=== PATIENT | female | born 1935 ===

== ENCOUNTER 2017-02-13 12:07 | Emergency (ER) | payer MEDICARE, MEDICAID ==
[2017-02-13 12:08] VITALS: PULSE 92; BMI 18.1
[2017-02-13 12:17] VITALS: O2SAT 98
--- NOTE | 2017-02-13 12:54 | C.PDOC ---
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 Patient has been experiencing three-day duration of multiple episodes of loose/non-bloody stools, that is associated with abdominal cramping, dysuria, generalized weakness and light headedness. No fever or vomiting. Patients appetite is unchanged from usual. No sick contacts. Patient denies any antibiotic use in the past three months. VIA TRANS DIARRHEA X 3 DAYS. MULTIPLE LOOSE BM. +ASSOC ABD CRAMPING. +GEN WEAKNESS, LIGHTHEADEDNESS. NO FEVER, VOMITING. APPETITE UNCH FROM USUAL. NO SICK CONTACTS. DENIES ABX USE IN PAST 3 MONTHS. +DYSURIA PMHx includes Arthritis, Atrial Fibrillation, CAD, Diabetes, Gall Bladder Disease, Hypertension, Hypercholesterolemia, and Peripheral Edema, EXAM Time Seen by Provider: 02/13/17 12:53 Chief Complaint (Nursing): Abdominal Pain Past Medical History Reviewed: Historical Data, Nursing Documentation, Vital Signs ( ) Vital Signs: Last Vital Signs Temp 98.6 F 02/13/17 14:50 Pulse 80 02/13/17 14:50 Resp 18 02/13/17 14:50 BP 157/74 H 02/13/17 14:50 Pulse Ox 98 02/13/17 14:50 - Medical History PMH: Arthritis, Atrial Fibrillation, CAD, Cardia Arrhythmia (A-FIB), Diabetes, Gall Bladder Disease, HTN, Hypercholesterolemia, Peripheral Edema Denies: Chronic Kidney Disease Surgical History: Cholecystectomy, Endoscopy - [facility] Procedures COLONOSCOPY (05/15/14) ESOPHAGOGASTRODUODENOSCOPY [EGD] W/CLOSED BIOPSY (05/15/14) Family History: States: Unknown Family Hx - Social History Hx Tobacco Use: No Hx Alcohol Use: No Hx Substance Use: No - Immunization History Hx Tetanus Toxoid Vaccination: Yes Hx Influenza Vaccination: Yes (2016) Hx Pneumococcal Vaccination: Yes Review Of Systems Except As Marked, All Systems Reviewed And Found Negative. Constitutional: Positive for: Weakness. Negative for: Fever Cardiovascular: Positive for: Light Headedness. Negative for: Chest Pain Respiratory: Negative for: Shortness of Breath Gastrointestinal: Positive for: Diarrhea. Negative for: Nausea, Vomiting Skin: Negative for: Rash Neurological: Negative for: Weakness, Numbness, Headache, Dizziness Physical Exam - Physical Exam Appears: Non-toxic, No Acute Distress, Other (Weak) Skin: Warm, Dry, No Rash Eye(s): bilateral: Normal Inspection Nose: Normal Oral Mucosa: Moist Lips: Normal Appearing Neck: Normal ROM Cardiovascular: Rhythm Regular, No Murmur Respiratory: Normal Breath Sounds, No Accessory Muscle Use Gastrointestinal/Abdominal: Soft, Tenderness (B/L LQ), No Guarding, No Rebound Extremity: Normal ROM Neurological/Psych: Oriented x3 ED Course And Treatment - Laboratory Results Result Diagrams: 02/13/17 13:16 02/13/17 13:16 ECG: Interpreted By Me ECG Rhythm: Atrial Fibrillation ECG Interpretation: No Changes From Prior Rate From EC O2 Sat by Pulse Oximetry: 98 Pulse Ox Interpretation: Normal - Radiology CXR: Interpreted by Me CXR Interpretation: Yes: No Acute Disease Progress - Re-Evaluation Re-evaluation Note: 02/13/17 16:18 FEELS BETTER. +UO SINCE IVF. ANA W ABX, JACOB PMD - Data Reviewed Data Reviewed: Lab, Diagnostic imaging, EKG Disposition Counseled Patient/Family Regarding: Studies Performed, Diagnosis, Need For Followup, Rx Given - Disposition Referrals: YOUR,PMD [Other] Disposition: HOME/ ROUTINE Disposition Time: 16:18 Condition: IMPROVED Prescriptions: Atropine/Diphenoxylate [Lonox 0.025 MG-2.5 MG] 1 tab PO TID PRN #15 tab PRN Reason: Diarrhea Ciprofloxacin [Cipro] 1 tab PO BID #14 tab Metronidazole [Flagyl] 500 mg PO BID #14 tab Instructions: Gastroenteritis (ED), Urinary Tract Infection in Women (ED) Print Language: TURKISH - Clinical Impression Clinical Impression: Diarrhea, UTI (lower urinary tract infection), Abdominal pain - Scribe Statement The provider has reviewed the documentation as recorded by the Alex Mosley All medical record entries made by the Edmaribmary ann were at my direction and personally dictated by me. I have reviewed the chart and agree that the record accurately reflects my personal performance of the history, physical exam, medical decision making, and the department course for this patient. I have also personally directed, reviewed, and agree with the discharge instructions and disposition.
[2017-02-13] MEDS ORDERED: Sodium Chloride 0.9% 1,000 ML IV ONE ×2 (13:05)
[2017-02-13 13:23] LABS: BASO # 0.1 K/uL (0.0-0.2); BASO % 1.3 % (0.0-2.0); EOS # 0.1 K/uL (0.0-0.7); HEMATOCRIT 41.5 % (34.0-47.0); LYMPH % 18.5 % (20.0-40.0); MEAN CELL VOLUME 87.3 fL (81.0-99.0); MEAN CORPUSCULAR HEMOGLOBIN 27.7 pg (27.0-31.0); MEAN CORPUSCULAR HGB CONC 31.7 g/dL (33.0-37.0); MEAN PLATELET VOLUME 9.2 fL (7.2-11.7); MONO # 0.6 K/uL (0.0-0.8); MONO % 5.6 % (0.0-10.0); RED CELL DISTRIBUTION WIDTH 13.2 % (11.5-14.5); WHITE BLOOD COUNT 10.8 K/uL (4.8-10.8)
[2017-02-13 13:26] LABS: CHLORIDE 98 mmol/L (98-107)
[2017-02-13 13:27] LABS: POTASSIUM 4.4 mmol/L (3.6-5.2); SODIUM 135 mmol/L (132-148)
[2017-02-13 13:29] LABS: GFR AFRICAN-AMERICAN > 60
[2017-02-13 13:30] LABS: BLOOD UREA NITROGEN 22 mg/dL (7-17); CALCIUM 10.3 mg/dl (8.6-10.4); CARBON DIOXIDE 24 mmol/L (22-30); GLUCOSE,RANDOM 238 mg/dL (65-105)
[2017-02-13 13:40] LABS: RBC URINE 2 /hpf (0-3); URINE BILIRUBIN NEGATIVE (NEGATIVE); URINE BLOOD NEGATIVE (NEGATIVE); URINE COLOR Yellow (YELLOW); URINE GLUCOSE (UA) NORMAL (Normal); URINE HYALINE CAST >20 /lpf (0-2); URINE KETONE TRACE mg/dL (NEGATIVE); URINE LEUKOCYTE ESTERASE 2+ Leu/uL (Negative); URINE PROTEIN 1+ mg/dL (NEGATIVE); URINE UROBILINOGEN NORMAL mg/dL (0.2-1.0); WBC URINE 8 /hpf (0-5)
--- NOTE | 2017-02-13 14:10 | RAD ---
PROCEDURE: CHEST RADIOGRAPH, 1 VIEW HISTORY: Abdominal pain COMPARISON: None available. FINDINGS: LUNGS: Biapical pleural thickening with upper lobe granulomatous changes. Focal nodular density projecting over the left upper to mid lung zone. Chronic interstitial lung markings. Patchy left basilar airspace opacity. PLEURA: As above. CARDIOVASCULAR: Normal. OSSEOUS STRUCTURES: Degenerative changes in the spine and shoulders. Chronic deformity of the right proximal humerus. VISUALIZED UPPER ABDOMEN: Normal. OTHER FINDINGS: None. IMPRESSION: Biapical pleural thickening with upper lobe granulomatous changes. Focal nodular density projecting over the left upper to mid lung zone. Chronic interstitial lung markings. Patchy left basilar airspace opacity.
[2017-02-13] MEDS ORDERED: Iohexol 350mg/ml 100 ML ONE (14:56)
[2017-02-13 16:30] VITALS: BP 150/70; PULSE 78; RESP 15; TEMP 98
--- NOTE | 2017-02-13 16:55 | CT ---
CT abdomen and pelvis History: Abdominal pain and diarrhea. Comparison: None available. Technique: Axial computed tomographic images of the abdomen and pelvis were performed with intravenous contrast. Subsequently, sagittal and coronal reformatted images were obtained. This CT exam was performed using one or more of the following dose reduction techniques: Automated exposure control, adjustment of the mA and/or kV according to patient size, and/or use of iterative reconstruction technique. Findings: Ground-glass infiltrates at the bilateral lung bases. Mild intrahepatic biliary ductal dilatation. Status postcholecystectomy. Heterogeneous pancreas, nonspecific. Spleen is grossly preserved. Adrenals are grossly preserved. Hypodense lesions of the renal parenchyma, some of which are consistent with cysts, others of which are too small to definitively characterize. Correlation with multiphasic CT or MR may be helpful. For example an exophytic low-attenuation lesion emanating from the midpole of the left kidney demonstrates a Hounsfield unit attenuation of 7 measuring 2.3 centimeters. More inferiorly in the right kidney a 7 millimeter hypodensity demonstrates a Hounsfield unit attenuation of 27, indeterminate. Mild fullness of the right renal collecting system. In the left kidney for example a midpole exophytic lesion measures 1.1 centimeters demonstrating a Hounsfield unit attenuation of 5. Additional hypodensities in both kidneys. No hydronephrosis. Appendix measures up to 6.7 millimeters in width best seen on series 3, image 97 containing a few foci of air, upper limits of normal. Small hiatal hernia. Mild thickening of the proximal stomach. Multiple prominent fluid filled and distended as well as mildly thick walled loops of small bowel within the upper and left shawn abdomen. This may represent an underlying enteritis. No evidence of gross obstruction. Mild thickening of the sigmoid colon and rectum. Mild acute infectious and or inflammatory changes can't be excluded. Clinical correlation. Colonic diverticulosis. Calcification and plaque within the aorta. Urinary bladder is grossly preserved. No significant abdominal or pelvic ascites. Multilevel degenerative disc disease. Shotty para-aortic and mesenteric lymph nodes. Impression: 1. Multiple prominent fluid filled and distended as well as mildly thick walled loops of small bowel within the upper and left shawn abdomen. This may represent an underlying enteritis. No evidence of gross obstruction. 2. Mild thickening of the sigmoid colon and rectum. Mild acute infectious and or inflammatory changes can't be excluded. Clinical correlation. Colonic diverticulosis. 3. Ground-glass infiltrates at the bilateral lung bases. 4. Hypodense lesions of the renal parenchyma as described above. 5. Small hiatal hernia. Mild thickening of the proximal stomach. 6. Shotty para-aortic and mesenteric lymph nodes. Additional findings as above. These findings were preliminarily reported at 3:45 p.m. on 02/13/[address] Bill Albright from [facility].
--- NOTE | 2017-02-14 14:22 | CARD ---
APPROVED REPORT EKG Measurement Heart [id number] <Conclusion> Atrial fibrillation Low voltage QRS Nonspecific ST and T wave abnormality Abnormal ECG
== END 2017-02-13 16:48 | disposition home or self-care (01) ==
LOC: C.ER 12:07
DX: N39.0 Urinary tract infection, site not specified (principal); R19.7 Diarrhea, unspecified
CPT/HCPCS: 71010; 74177; 80048; 81001; 82948; 85025; 87086; 93005; 96360; 96361; 99285; J7040; Q9967

== ENCOUNTER 2018-03-12 13:29 | Emergency (ER) | payer MEDICARE, MEDICAID ==
[2018-03-12 13:29] VITALS: PULSE 92; BMI 18.1
[2018-03-12 13:47] VITALS: PULSE 72; O2SAT 97
--- NOTE | 2018-03-12 14:18 | C.PDOC ---
History Of Present Illness Pt states that she was sitting at the edge of the bed when she slid down to the grown injuring her left ribs area. No LOC or head injury. - HPI Time Seen by Provider: 03/12/18 13:45 Chief Complaint (Nursing): Rib Injury History Per: Patient, Family (daughter) Injury Occurred (Timing): Days Ago: (2) Location Of Injury: Left: Chest Severity: Moderate Additional History Per: Prior Records - Fall Fall:Prior To Injury: Slipped Past Medical History Reviewed: Historical Data, Nursing Documentation, Vital Signs Vital Signs: Last Vital Signs Temp 98.5 F 03/12/18 13:38 Pulse 72 03/12/18 13:38 Resp 18 03/12/18 13:38 BP 139/84 03/12/18 13:38 Pulse Ox 97 03/12/18 14:20 - Medical History PMH: Arthritis, Atrial Fibrillation, CAD, Diabetes, Gall Bladder Disease, HTN, Hypercholesterolemia, Peripheral Edema Surgical History: Cholecystectomy, Endoscopy - [facility] Procedures COLONOSCOPY (05/15/14) ESOPHAGOGASTRODUODENOSCOPY [EGD] W/CLOSED BIOPSY (05/15/14) Family History: States: Unknown Family Hx - Social History Hx Tobacco Use: No Hx Alcohol Use: No Hx Substance Use: No - Immunization History Hx Tetanus Toxoid Vaccination: Yes Hx Influenza Vaccination: Yes (2016) Hx Pneumococcal Vaccination: Yes Review Of Systems Except As Marked, All Systems Reviewed And Found Negative. Constitutional: Negative for: Fever, Weakness Cardiovascular: Negative for: Light Headedness Respiratory: Negative for: Shortness of Breath, Hemoptysis Gastrointestinal: Negative for: Nausea, Vomiting, Abdominal Pain Genitourinary: Negative for: Hematuria Musculoskeletal: Negative for: Neck Pain, Back Pain, Leg Pain Neurological: Negative for: Weakness, Numbness, Seizures, Altered Mental Status , Headache Physical Exam - Physical Exam Appears: Non-toxic, No Acute Distress Skin: Normal Color, Warm, Dry, No Rash Head: Atraumatic, Normacephalic Eye(s): bilateral: PERRL Neck: Normal ROM, No Midline Cervical Tenderness, No Step Off Deformity, Supple Chest: Symmetrical, No Deformity, Tenderness (left lower lateral ribs), No Ecchymosis, No Subcutaneous Emphysema Cardiovascular: Rhythm Irregular Respiratory: Normal Breath Sounds, No Accessory Muscle Use Gastrointestinal/Abdominal: Soft, No Tenderness Back: No CVA Tenderness, No Vertebral Tenderness Extremity: Normal ROM, No Tenderness, No Deformity Extremity: Bilateral: Hips Non-Tender, Pelvis-Stable Neurological/Psych: Oriented x3, Normal Motor, Normal Sensation ED Course And Treatment O2 Sat by Pulse Oximetry: 97 Pulse Ox Interpretation: Normal - Other Rad Left rib series X-Ray: Interpreted by Me, Viewed By Me Interpretation: No displaced rib fracture. No PTX. Reassessment Condition: Improved Disposition Counseled Patient/Family Regarding: Studies Performed, Diagnosis, Need For Followup, Rx Given - Disposition Referrals: Helder Thomason [Staff Provider] - Disposition: HOME/ ROUTINE Disposition Time: 14:31 Condition: STABLE Additional Instructions: Follow up with your doctor this week. Return to the ER if you develop shortness of breath, fever, cough, worsening of symptoms or if you have any other concerns. Prescriptions: traMADol/Acetaminophen [Ultracet 325 MG-37.5 MG] 1 tab PO Q6 PRN #20 tab PRN Reason: Pain Instructions: Bruised Rib (DC) Forms: [employer] ([place]) Print Language: K[place]I - Clinical Impression Clinical Impression: Contusion of rib on left side
[2018-03-12 14:43] VITALS: BP 135/89; RESP 20; TEMP 98.9
--- NOTE | 2018-03-12 17:21 | RAD ---
PROCEDURE: Radiographs of the Chest and Left Ribs. HISTORY: Pain s/p fall 2 days ago COMPARISON: None available. TECHNIQUE: Frontal radiograph of the chest and multiple oblique radiographs of the left ribs were obtained. FINDINGS: LEFT RIBS: Examination technically limited. No evidence of left rib fracture. LUNGS: Clear. PLEURA: No pneumothorax or pleural fluid. CARDIOVASCULAR: Normal sized heart. No pulmonary vascular congestion. OTHER FINDINGS: Chronic deformity proximal right humerus, likely posttraumatic. IMPRESSION: No evidence of left rib fracture.
== END 2018-03-12 14:43 | disposition home or self-care (01) ==
LOC: C.ER 13:29
DX: S20.212A Contusion of left front wall of thorax, initial encounter (principal); W06.XXXA Fall from bed, initial encounter; E11.9 Type 2 diabetes mellitus without complications; E78.00 Pure hypercholesterolemia, unspecified; I10 Essential (primary) hypertension; I48.91 Unspecified atrial fibrillation; I25.10 Atherosclerotic heart disease of native coronary artery without angina pectoris

== ENCOUNTER 2018-10-08 12:46 | Inpatient (IN) | payer MEDICARE, MEDICAID ==
[2018-10-08 12:46] VITALS: BMI 18.1
[2018-10-08 14:19] LABS: BASO # 0.1 K/uL (0.0-0.2); BASO % 0.6 % (0.0-2.0); EOS # 0.1 K/uL (0.0-0.7); EOS % 0.7 % (0.0-4.0); HEMOGLOBIN 13.7 g/dL (11.0-16.0); LYMPH # 1.4 K/uL (1.0-4.3); LYMPH % 12.5 % (20.0-40.0); MEAN CORPUSCULAR HEMOGLOBIN 30.4 pg (27.0-31.0); MEAN CORPUSCULAR HGB CONC 33.5 g/dL (33.0-37.0); MONO # 0.8 K/uL (0.0-0.8); MONO % 7.4 % (0.0-10.0); NEUT % 78.8 % (50.0-75.0); RBC 4.51 Mil/uL (3.80-5.20); RED CELL DISTRIBUTION WIDTH 13.1 % (11.5-14.5); WHITE BLOOD COUNT 11.4 K/uL (4.8-10.8)
[2018-10-08 14:22] LABS: MEAN CELL VOLUME 90.8 fL (81.0-99.0)
[2018-10-08] MEDS ORDERED: Sodium Chloride 0.9% 500 ML IV ONE ×2 (14:22→15:55)
--- NOTE | 2018-10-08 14:22 | C.PDOC ---
History Of Present Illness 82 year old female is brought to the ED by son for an evaluation of diarrhea, fever, generalized weakness, and abdominal pain for 4 days. As per son, patient was seen by PMD Dr. Thomason 4 days ago but was not given anything for the sy mptoms. Reports patient took Tylenol at 0900 this morning. Denies any vomiting, nausea, cough, shortness of breath, or chest pain. As per son, patient has chronic abdominal issues. Time Seen by Provider: 10/08/18 14:00 Chief Complaint (Nursing): GI Problem History Per: Patient, Family (son) History/Exam Limitations: no limitations Onset/Duration Of Symptoms: Days (4) Current Symptoms Are (Timing): Still Present Reports Recently: Treated By A Physician (seen by Dr. Thomason ) Past Medical History Reviewed: Historical Data, Nursing Documentation, Vital Signs Vital Signs: Last Vital Signs Temp 97.4 F L 10/08/18 12:51 Pulse 60 10/08/18 12:51 Resp 19 10/08/18 12:51 BP 133/85 10/08/18 12:51 Pulse Ox 98 10/08/18 12:51 - Medical History PMH: Arthritis, Atrial Fibrillation, CAD, Cardia Arrhythmia (A-FIB), Diabetes, Gall Bladder Disease, HTN, Hypercholesterolemia, Peripheral Edema Denies: Chronic Kidney Disease Surgical History: Cholecystectomy, Endoscopy - [facility] Procedures COLONOSCOPY (05/15/14) ESOPHAGOGASTRODUODENOSCOPY [EGD] W/CLOSED BIOPSY (05/15/14) Family History: States: No Known Family Hx - Social History Hx Tobacco Use: No Hx Alcohol Use: No Hx Substance Use: No - Immunization History Hx Tetanus Toxoid Vaccination: Yes Hx Influenza Vaccination: Yes (2016) Hx Pneumococcal Vaccination: Yes Review Of Systems Except As Marked, All Systems Reviewed And Found Negative. Constitutional: Positive for: Fever, Weakness Cardiovascular: Negative for: Chest Pain Respiratory: Negative for: Cough, Shortness of Breath Gastrointestinal: Positive for: Abdominal Pain, Diarrhea. Negative for: Nausea, Vomiting Physical Exam - Physical Exam Appears: Non-toxic, No Acute Distress Skin: Warm, Dry, No Rash Head: Normacephalic Eye(s): bilateral: Normal Inspection Nose: Normal Oral Mucosa: Moist Neck: Supple Chest: Symmetrical Cardiovascular: Rhythm Regular Respiratory: Normal Breath Sounds, No Rales, No Rhonchi, No Wheezing Gastrointestinal/Abdominal: Soft, No Tenderness, No Distention, No Guarding, No Rebound Neurological/Psych: Oriented x3, Normal Speech ED Course And Treatment - Laboratory Results Result Diagrams: 10/08/18 14:11 10/08/18 14:11 ECG: Interpreted By Me ECG Rhythm: Atrial Fibrillation Rate From EC O2 Sat by Pulse Oximetry: 98 (RA) Pulse Ox Interpretation: Normal - Radiology CXR: Interpreted by Me, Viewed By Me CXR Interpretation: Yes: No Acute Disease Progress - Re-Evaluation Re-evaluation Note: 10/08/18 15:55 SP IVF. NARD. NO UO. WILL CONT IVF. PENDING CALLBACK PMD 10/08/18 16:00 D/W DR DIAS C/F PMD AWARE OF ER FINDINGS AND AGREES W PLAN. TELE, WILL ADMIT 10/08/18 16:52 IMPROVED COMPARED TO INITIAL, ALERT AND MORE INTERACTIVE. REQUESTING DINNER - Data Reviewed Data Reviewed: Lab, Diagnostic imaging, EKG, Old records - Critical Care Citical Care: Excluding Proc Time Critical Care Time: 90 minutes Medical Decision Making Medical Decision Making: Plan - Bloodwork - CXR - IV fluids - Urine culture - UA - Influenza A B Stat Disposition Counseled Patient/Family Regarding: Studies Performed, Diagnosis - Disposition Disposition: HOSPITALIZED Disposition Time: 16:01 Condition: SERIOUS - POA Present On Arrival: Poor Glycemic Control - Clinical Impression Clinical Impression: DKA (diabetic ketoacidoses), Dehydration, Diarrhea - Scribe Statement The provider has reviewed the documentation as recorded by the Scribmary ann Gamboa All medical record entries made by the Edmaribmary ann were at my direction and personally dictated by me. I have reviewed the chart and agree that the record accurately reflects my personal performance of the history, physical exam, medical decision making, and the department course for this patient. I have also personally directed, reviewed, and agree with the discharge instructions and disposition.
[2018-10-08 14:43] LABS: ALB/GLOB RATIO 1.2 (1.0-2.1); ALT/SGPT 11 U/L (9-52); AST/SGOT 16 U/L (14-36); BLOOD UREA NITROGEN 28 mg/dL (7-17); GFR NON-AFRICAN AMERICAN > 60
[2018-10-08] MEDS ORDERED: Sodium Chloride 0.9% 1,000 ML ONE ×2 (14:49→22:24)
[2018-10-08 14:55] LABS: VENOUS BLOOD GAS PCO2 44 mmHg (40-60); VENOUS BLOOD GAS PO2 27 mm/Hg (30-55)
--- NOTE | 2018-10-08 15:15 | RAD ---
Date of service: 10/08/2018 PROCEDURE: CHEST RADIOGRAPH, 1 VIEW HISTORY: Weakness COMPARISON: 03/12/2018. FINDINGS: LUNGS: The lungs are well inflated. There is mild pulmonary venous congestion. No focal consolidation. PLEURA: No pneumothorax or pleural effusion. CARDIOVASCULAR: There is mild cardiomegaly. There are aortic atherosclerotic calcifications present. OSSEOUS STRUCTURES: There is diffuse bone demineralization. Severe degenerative osteoarthrosis in the glenohumeral joints. Old fracture deformity in the right proximal humerus. VISUALIZED UPPER ABDOMEN: Normal. OTHER FINDINGS: Surgical clips in the right upper quadrant are related to prior cholecystectomy. IMPRESSION: No active pulmonary disease.
[2018-10-08] MEDS ORDERED: (Novolin R) Insulin Human Regular 100 units/ml vial IV STA (15:53)
[2018-10-08] MEDS ORDERED: (Novolin R) Insulin Human Regular 100 units/ml vial ONE (16:00)
[2018-10-08 16:55] LABS: SQUAMOUS EPITHIAL 3 /hpf (0-5); URINE BILIRUBIN NEGATIVE (NEGATIVE); URINE BLOOD NEGATIVE (NEGATIVE); URINE CLARITY Clear (Clear); URINE COLOR Yellow (YELLOW); URINE GLUCOSE (UA) 3+ mg/dL (Normal); URINE LEUKOCYTE ESTERASE NEG Leu/uL (Negative); URINE PROTEIN NEGATIVE (NEGATIVE); URINE UROBILINOGEN NORMAL mg/dL (0.2-1.0)
[2018-10-08] MEDS ORDERED: Glucagon Recombinant 1 mg Inj IM PRN (16:59)
[2018-10-08] MEDS ORDERED: Dextrose 50% SYRINGE Inj (50 ml) IV PRN (16:59)
[2018-10-08] MEDS: Sodium Chloride 0.9% 1,000 ML IV SCH ×2 (17:48→22:00)
[2018-10-08 20:17] LABS: BASO # 0.1 K/uL (0.0-0.2); BASO % 0.9 % (0.0-2.0); EOS # 0.1 K/uL (0.0-0.7); EOS % 0.8 % (0.0-4.0); HEMOGLOBIN 12.8 g/dL (11.0-16.0); LYMPH # 1.9 K/uL (1.0-4.3); LYMPH % 16.5 % (20.0-40.0); MEAN CELL VOLUME 90.3 fL (81.0-99.0); MEAN CORPUSCULAR HEMOGLOBIN 30.6 pg (27.0-31.0); MEAN CORPUSCULAR HGB CONC 33.9 g/dL (33.0-37.0); MEAN PLATELET VOLUME 8.6 fL (7.2-11.7); MONO # 0.8 K/uL (0.0-0.8); MONO % 7.2 % (0.0-10.0); NEUT # 8.7 K/uL (1.8-7.0); NEUT % 74.6 % (50.0-75.0); RBC 4.18 Mil/uL (3.80-5.20); RED CELL DISTRIBUTION WIDTH 13.2 % (11.5-14.5); WHITE BLOOD COUNT 11.7 K/uL (4.8-10.8)
[2018-10-08 20:31] LABS: ALB/GLOB RATIO 1.1 (1.0-2.1); ALBUMIN 3.6 g/dL (3.5-5.0); ALT/SGPT 14 U/L (9-52); AST/SGOT 23 U/L (14-36); BLOOD UREA NITROGEN 25 mg/dL (7-17); CALCIUM 9.4 mg/dl (8.6-10.4); GFR NON-AFRICAN AMERICAN > 60
[2018-10-08] MEDS: (Novolog) Insulin Aspart, Recombinant 100 u/ml 10 ml vial SC SCH (20:38)
[2018-10-08] MEDS ORDERED: (Novolog) Insulin Aspart, Recombinant 100 u/ml 10 ml vial ONE (23:58)
[2018-10-09] MEDS: (Novolog) Insulin Aspart, Recombinant 100 u/ml 10 ml vial SC SCH ×6 (00:01→20:30)
[2018-10-09] MEDS: Sodium Chloride 0.9% 1,000 ML IV SCH ×2 (02:20→04:21)
[2018-10-09] MEDS ORDERED: Sodium Chloride 0.9% 1,000 ML ONE (07:19)
[2018-10-09] MEDS ORDERED: (Novolog) Insulin Aspart, Recombinant 100 u/ml 10 ml vial ONE (09:18)
[2018-10-09] MEDS ORDERED: (Novolin R) Insulin Human Regular 100 units/ml vial ONE (12:13)
[2018-10-09 15:57] VITALS: RESP 20
[2018-10-09] MEDS: Digoxin 125 mcg (0.125 mg) Tab PO SCH (19:01)
--- NOTE | 2018-10-09 21:23 | CP.PCM.HP ---
History of Present Illness - History of Present Illness History of Present Illness: Chief commend: Weakness. HPI: 82-year-old female with a history of osteoarthritis, atrial flutter fibrillation, CAD, diabetes, gallbladder disease hypertension, hypercholesterolemia, peripheral edema and with hypercalcemia came into the emergency room because of weakness. Patient had a few episodes of diarrhea prior to the day of admission. According to the family she was also feeling increasingly weakness. She was walking very poorly. Associated with increasing nausea. She was not also eating well. Because of the tiredness and fatigue patient family brought her to the emergency room. Also she was having some sweating, shortness of breath, and associated with some fever and chills. In the emergency room patient vital signs were stable. She denied any chest pain. Minimal expiratory wheezing present. Minimal cough present. No abdominal pain. But complaining of some leg pain. Past medical history: Atrial flutter fibrillation, hypertension, diabetes, hypercholesterolemia, history of bleeding in the past. Surgical history none Allergies no known drug allergy Personal history: Non-smoker nonalcoholic. Lives with family. Able to walk but increasingly severely weakness noted. Generalized weakness and malaise noted. Personal history noted Review of system: Patient has no headache. But she is somewhat confused at times. No chest pain or shortness of breath noted. Denies any nausea and vomiting. But episodes of diarrhea recently noted. On examination: Vital signs are stable otherwise. Chest good air entry Patient has a regular heart sounds Abdomen soft. And it is not tenderness noted Edema in the legs negative. Patient has a dry mucosa noted. Labs reviewed Nonspecific. Elevation of the BUN noted. Possibility of dehydration Chest x-ray nonspecific. No acute changes noted Assessment and recommendation: 82-year-old female with a history of osteoarthritis, flutter fibrillation, atrial fibrillation, CAD, diabetes and hypertension. High cholesterol. Peripheral edema. Hypercalcemia in the past. Number admitted with weakness, tiredness fatigue. Most likely dehydration related. Also evidence of urinary tract infection cannot be ruled out. Awaiting for culture. No antibiotic needed at this time. We will continue with IV fluid. Unable to follow the patient. Present on Admission - Present on Admission Any Indicators Present on Admission: No History of DVT/PE: No History of Uncontrolled Diabetes: No Urinary Catheter: No Decubitus Ulcer Present: No Past Patient History - Infectious Disease Hx of Infectious Diseases: None - Past Medical History & Family History Past Medical History?: Yes - Past Social History Smoking Status: Never Smoked - CARDIAC Hx Cardiac Disorders: Yes Hx Atrial Fibrillation: Yes Hx Cardia Arrhythmia: Yes (A-FIB) Hx Hypercholesterolemia: Yes Hx Hypertension: Yes Hx Peripheral Edema: Yes - PULMONARY Hx Respiratory Disorders: No - NEUROLOGICAL Hx Neurological Disorder: Yes Hx Dementia: Yes Other/Comment: SHORT TERM MEMORY LOSS - HEENT Hx HEENT Problems: No - RENAL Hx Chronic Kidney Disease: No - ENDOCRINE/METABOLIC Hx Endocrine Disorders: Yes Hx Diabetes Mellitus Type 2: Yes - HEMATOLOGICAL/ONCOLOGICAL Hx Blood Disorders: Yes Hx Bruising: Yes - INTEGUMENTARY Hx Dermatological Problems: No - MUSCULOSKELETAL/RHEUMATOLOGICAL Hx Musculoskeletal Disorders: Yes Hx Arthritis: Yes Hx Falls: Yes - GASTROINTESTINAL Hx Gastrointestinal Disorders: Yes Hx Gall Bladder Disease: Yes - GENITOURINARY/GYNECOLOGICAL Hx Genitourinary Disorders: No - PSYCHIATRIC Hx Psychophysiologic Disorder: No Hx Substance Use: No - SURGICAL HISTORY Hx Surgeries: Yes Hx Cholecystectomy: Yes - ANESTHESIA Hx Anesthesia: Yes Hx Anesthesia Reactions: No Hx Malignant Hyperthermia: No Meds Allergies/Adverse Reactions: Allergies Allergy/AdvReac Type Severity Reaction Status Date / Time No Known Allergies Allergy Verified 10/08/18 12:55 Results - Vital Signs Recent Vital Signs: Last Vital Signs Temp 98.6 F 10/09/18 16:00 Pulse 89 10/09/18 16:00 Resp 20 10/09/18 16:00 BP 164/75 H 10/09/18 16:00 Pulse Ox 96 10/09/18 16:00 - Labs Result Diagrams: 10/08/18 20:00 10/08/18 20:13 Labs: Laboratory Results - last 24 hr 10/08/18 10/09/18 10/09/18 23:48 04:06 08:11 POC Glucose (mg/dL) 325 H 198 H 230 H 10/09/18 10/09/18 10/09/18 11:52 16:09 17:49 POC Glucose (mg/dL) 211 H 125 H 129 H 10/09/18 20:00 POC Glucose (mg/dL) 195 H
--- NOTE | 2018-10-09 21:26 | CP.PCM.PN ---
Subjective - Date & Time of Evaluation Date of Evaluation: 10/09/18 Time of Evaluation: 21:24 - Subjective Subjective: Patient today feeling slightly better. But she is having some episodes of chest discomfort. No nausea no vomiting noted. She is eating okay. She has no abdominal pain. Less confused than yesterday. She is still having some difficult time and walking, probably she will need some assistance for walking. On examination: Vital signs stable. Chest good air entry Regular [place] Abdomen soft and nontender Assessment: 82-year-old female with multiple medical history including diabetes hypertension hypercholesterolemia CAD, osteoarthritis. Admitted now with weakness, malaise and suspected dehydration secondary to diarrhea, nonspecific. I recommended physical therapy. If patient is clinically stable tomorrow and recommended by a physical therapy for home PT, can be discharged Will be follow-up the patient Objective - Vital Signs/Intake and Output Vital Signs (last 24 hours): Temp Pulse Resp BP Pulse Ox 98.6 F 89 20 164/75 H 96 10/09/18 16:00 10/09/18 16:00 10/09/18 16:00 10/09/18 16:00 10/09/18 16:00 - Medications Medications: Current Medications Dextrose (Dextrose 50% Inj) 0 ml IV STAT PRN; Protocol PRN Reason: Hypoglycemia Protocol Dextrose (Glutose 15) 0 gm PO ONCE PRN; Protocol PRN Reason: Hypoglycemia Protocol Digoxin (Digoxin) 0.125 mg PO DAILY@1800 [facility] Last Admin: 10/09/18 19:01 Dose: 0.125 mg Donepezil HCl (Aricept) 5 mg PO HS [facility] Last Admin: 10/08/18 22:37 Dose: 5 mg Glucagon (Glucagen Diagnostic Kit) 0 mg IM STAT PRN; Protocol PRN Reason: Hypoglycemia Protocol Sodium Chloride (Sodium Chloride 0.9%) 1,000 mls @ 100 mls/hr IV .Q10H [facility] Last Admin: 10/09/18 04:21 Dose: 100 mls/hr Dextrose (Dextrose 5% In Water 1000 Ml) 1,000 mls @ 0 mls/hr IV .Q0M PRN; Prot ocol PRN Reason: Hypoglycemia Protocol Influenza Virus Vaccine (Flucelvax Quad [id number] Syr) 60 mcg IM .ONCE ONE Stop: 10/11/18 10:01 Insulin Aspart (Novolog) 0 unit SC Q4 [facility]; Protocol Last Admin: 10/09/18 18:00 Dose: Not Given Losartan Potassium (Cozaar) 50 mg PO DAILY [facility] Last Admin: 10/09/18 10:59 Dose: 50 mg Pneumococcal Polyvalent Vaccine (Pneumovax 23 Vaccine) 0.5 ml IM .ONCE ONE Stop: 10/11/18 14:01 Rivaroxaban (Xarelto) 15 mg PO DAILY [facility] Last Admin: 10/09/18 10:59 Dose: 15 mg - Labs Labs: 10/08/18 20:00 10/08/18 20:13
--- NOTE | 2018-10-09 21:31 | CARD ---
APPROVED REPORT Date of service: 10/08/2018 EKG Measurement Heart [id number] <Conclusion> Atrial fibrillation Possible Anterior infarct, age undetermined ST & T wave abnormality, consider inferolateral ischemia Abnormal ECG
[2018-10-10] MEDS: (Novolog) Insulin Aspart, Recombinant 100 u/ml 10 ml vial SC SCH ×5 (01:00→17:44)
[2018-10-10 08:36] LABS: BASO # 0.1 K/uL (0.0-0.2); BASO % 0.4 % (0.0-2.0); EOS # 0.1 K/uL (0.0-0.7); EOS % 0.6 % (0.0-4.0); HEMOGLOBIN 13.1 g/dL (11.0-16.0); LYMPH # 1.9 K/uL (1.0-4.3); LYMPH % 15.2 % (20.0-40.0); MEAN CELL VOLUME 89.5 fL (81.0-99.0); MEAN CORPUSCULAR HEMOGLOBIN 30.1 pg (27.0-31.0); MEAN CORPUSCULAR HGB CONC 33.6 g/dL (33.0-37.0); MEAN PLATELET VOLUME 8.5 fL (7.2-11.7); MONO # 0.7 K/uL (0.0-0.8); MONO % 5.3 % (0.0-10.0); NEUT # 9.8 K/uL (1.8-7.0); NEUT % 78.5 % (50.0-75.0); NRBC % 0.1 % (0.0-2.0); RBC 4.37 Mil/uL (3.80-5.20); RED CELL DISTRIBUTION WIDTH 13.1 % (11.5-14.5); WHITE BLOOD COUNT 12.5 K/uL (4.8-10.8)
[2018-10-10 09:19] LABS: ALB/GLOB RATIO 1.1 (1.0-2.1); ALBUMIN 3.6 g/dL (3.5-5.0); ALT/SGPT 19 U/L (9-52); AST/SGOT 25 U/L (14-36); BLOOD UREA NITROGEN 12 mg/dL (7-17); CALCIUM 9.3 mg/dl (8.6-10.4); GFR NON-AFRICAN AMERICAN > 60
[2018-10-10] MEDS ORDERED: Potassium Chloride 20 mEq ER Tab PO ONE (14:00)
[2018-10-10] MEDS: Magnesium Sulfate 1 gm in D5W 1 GM/100 ML BAG IVPB SCH ×2 (14:41→15:47)
[2018-10-10 16:08] VITALS: BP 166/93; PULSE 95; TEMP 98.2; O2SAT 96
--- NOTE | 2018-10-10 16:31 | CP.PCM.PN ---
Subjective - Date & Time of Evaluation Date of Evaluation: 10/10/18 Time of Evaluation: 16:30 - Subjective Subjective: PATIENT SEEN AND EXAMINED AT THE BEDSIDE Objective - Vital Signs/Intake and Output Vital Signs (last 24 hours): Temp Pulse Resp BP Pulse Ox 98.2 F 95 H 20 166/93 H 96 10/10/18 15:00 10/10/18 15:00 10/10/18 15:00 10/10/18 15:00 10/10/18 15:00 - Medications Medications: Current Medications Dextrose (Dextrose 50% Inj) 0 ml IV STAT PRN; Protocol PRN Reason: Hypoglycemia Protocol Dextrose (Glutose 15) 0 gm PO ONCE PRN; Protocol PRN Reason: Hypoglycemia Protocol Digoxin (Digoxin) 0.125 mg PO DAILY@1800 [facility] Last Admin: 10/09/18 19:01 Dose: 0.125 mg Donepezil HCl (Aricept) 5 mg PO HS [facility] Last Admin: 10/09/18 23:00 Dose: Not Given Glucagon (Glucagen Diagnostic Kit) 0 mg IM STAT PRN; Protocol PRN Reason: Hypoglycemia Protocol Dextrose (Dextrose 5% In Water 1000 Ml) 1,000 mls @ 0 mls/hr IV .Q0M PRN; Protocol PRN Reason: Hypoglycemia Protocol Influenza Virus Vaccine (Flucelvax Quad [id number] Syr) 60 mcg IM .ONCE ONE Stop: 10/11/18 10:01 Insulin Aspart (Novolog) 0 unit SC Q4 [facility]; Protocol Last Admin: 10/10/18 12:50 Dose: 10 units Losartan Potassium (Cozaar) 50 mg PO DAILY [facility] Last Admin: 10/10/18 09:13 Dose: 50 mg Pneumococcal Polyvalent Vaccine (Pneumovax 23 Vaccine) 0.5 ml IM .ONCE ONE Stop: 10/11/18 14:01 Rivaroxaban (Xarelto) 15 mg PO DAILY [facility] Last Admin: 10/10/18 09:12 Dose: 15 mg - Labs Labs: 10/10/18 08:28 10/10/18 08:28 Assessment and Plan - Assessment and Plan (Free Text) Assessment: FOLLOW UP WITH DR DIAS IN HIS OFFICE -----CALL FOR APPOINTMENT CONTINUE HOME MEDICATION ACTIVITY TOLERATED AND HOME W/SERVICE PER PHYSICAL THERAPY RECOMMENDATION CALL DR DIAS OR GO TO THE EMERGENCY ROOM IF SYMPTOM RETURN OR WORSENING
[2018-10-10] MEDS: Digoxin 125 mcg (0.125 mg) Tab PO SCH (17:44)
[2018-10-10 17:45] VITALS: PULSE 99
--- NOTE | 2018-10-10 23:33 | CP.PCM.DIS ---
Provider - Provider Date of Admission: 10/08/18 16:03 Attending physician: Reagan Layne MD Time Spent in preparation of Discharge (in minutes): 45 Hospital Course - Lab Results Lab Results: Micro Results 10/08/18 16:38 Urine,Bernal Urine Culture - Final <10,000 CFU/ML. MULTIPLE SPECIES. PROBABLE CONTAMINATION. Most Recent Lab Values WBC 12.5 K/uL (4.8-10.8) H 10/10/18 08:28 RBC 4.37 Mil/uL (3.80-5.20) 10/10/18 08:28 Hgb 13.1 g/dL (11.0-16.0) 10/10/18 08:28 Hct 39.1 % (34.0-47.0) 10/10/18 08:28 MCV 89.5 fL (81.0-99.0) 10/10/18 08:28 MCH 30.1 pg (27.0-31.0) 10/10/18 08:28 MCHC 33.6 g/dL (33.0-37.0) 10/10/18 08:28 RDW 13.1 % (11.5-14.5) 10/10/18 08:28 Plt Count 378 K/uL (130-400) 10/10/18 08:28 MPV 8.5 fL (7.2-11.7) 10/10/18 08:28 Neut % (Auto) 78.5 % (50.0-75.0) H 10/10/18 08:28 Lymph % (Auto) 15.2 % (20.0-40.0) L 10/10/18 08:28 [place] % (Auto) 5.3 % (0.0-10.0) 10/10/18 08:28 Eos % (Auto) 0.6 % (0.0-4.0) 10/10/18 08:28 Baso % (Auto) 0.4 % (0.0-2.0) 10/10/18 08:28 Neut # (Auto) 9.8 K/uL (1.8-7.0) H 10/10/18 08:28 Lymph # (Auto) 1.9 K/uL (1.0-4.3) 10/10/18 08:28 [place] # (Auto) 0.7 K/uL (0.0-0.8) 10/10/18 08:28 Eos # (Auto) 0.1 K/uL (0.0-0.7) 10/10/18 08:28 Baso # (Auto) 0.1 K/uL (0.0-0.2) 10/10/18 08:28 pO2 27 mm/Hg (30-55) L 10/08/18 14:45 VBG pH 7.40 (7.32-7.43) 10/08/18 14:45 VBG pCO2 44 mmHg (40-60) 10/08/18 14:45 VBG HCO3 25.2 mmol/L 10/08/18 14:45 VBG Total CO2 28.7 mmol/L (22-28) H 10/08/18 14:45 VBG O2 Sat (Calc) 53.8 % (40-65) 10/08/18 14:45 VBG Base Excess 2.0 mmol/L (0.0-2.0) 10/08/18 14:45 VBG Potassium 3.2 mmol/L (3.6-5.2) L 10/08/18 14:45 Sodium 135.0 mmol/l (132-148) 10/08/18 14:45 Chloride 99.0 mmol/L (98-107) 10/08/18 14:45 Glucose 403 mg/dl (65-105) H* 10/08/18 14:45 Lactate 3.3 mmol/L (0.7-2.1) H 10/08/18 14:45 Crit Value Called To Chante 10/08/18 14:45 Crit Value Called By Vicki hannah 10/08/18 14:45 Crit Value Read Back Y 10/08/18 14:45 Blood Gas Notified Time 1454 10/08/18 14:45 Sodium 137 mmol/L (132-148) 10/10/18 08:28 Potassium 3.4 mmol/L (3.6-5.2) L 10/10/18 08:28 Chloride 101 mmol/L (98-107) 10/10/18 08:28 Carbon Dioxide 28 mmol/L (22-30) 10/10/18 08:28 Anion Gap 12 (10-20) 10/10/18 08:28 BUN 12 mg/dL (7-17) 10/10/18 08:28 Creatinine 0.7 mg/dL (0.7-1.2) 10/10/18 08:28 Est GFR ( Amer) > 60 10/10/18 08:28 Est GFR (Non-Af Amer) > 60 10/10/18 08:28 POC Glucose (mg/dL) 223 mg/dL (65-110) H 10/10/18 16:25 Random Glucose 206 mg/dL (65-105) H 10/10/18 08:28 Lactic Acid 2.4 mmol/L (0.7-2.1) H 10/08/18 20:00 Calcium 9.3 mg/dl (8.6-10.4) 10/10/18 08:28 Phosphorus 2.6 mg/dL (2.5-4.5) 10/10/18 08:28 Magnesium 1.3 mg/dL (1.6-2.3) L 10/10/18 08:28 Total Bilirubin 0.4 mg/dL (0.2-1.3) 10/10/18 08:28 AST 25 U/L (14-36) 10/10/18 08:28 ALT 19 U/L (9-52) 10/10/18 08:28 Alkaline Phosphatase 104 U/L (38-126) 10/10/18 08:28 Total Protein 6.8 g/dL (6.3-8.3) 10/10/18 08:28 Albumin 3.6 g/dL (3.5-5.0) 10/10/18 08:28 Globulin 3.2 gm/dL (2.2-3.9) 10/10/18 08:28 Albumin/Globulin Ratio 1.1 (1.0-2.1) 10/10/18 08:28 Venous Blood Potassium 3.2 mmol/L (3.6-5.2) L 10/08/18 14:45 Urine Color Yellow (YELLOW) 10/08/18 16:38 Urine Clarity Clear (Clear) 10/08/18 16:38 Urine pH 5.0 (5.0-8.0) 10/08/18 16:38 Ur Specific [place] 1.022 (1.003-1.030) 10/08/18 16:38 Urine Protein Negative mg/dL (NEGATIVE) 10/08/18 16:38 Urine Glucose (UA) 3+ mg/dL (Normal) H 10/08/18 16:38 Urine Ketones Negative mg/dL (NEGATIVE) 10/08/18 16:38 Urine Blood Negative (NEGATIVE) 10/08/18 16:38 Urine Nitrate Negative (NEGATIVE) 10/08/18 16:38 Urine Bilirubin Negative (NEGATIVE) 10/08/18 16:38 Urine Urobilinogen Normal mg/dL (0.2-1.0) 10/08/18 16:38 Ur Leukocyte Esterase Neg Prisca/uL (Negative) 10/08/18 16:38 Urine WBC (Auto) 1 /hpf (0-5) 10/08/18 16:38 Urine RBC (Auto) < 1 /hpf (0-3) 10/08/18 16:38 Ur Squamous Epith Cells 3 /hpf (0-5) 10/08/18 16:38 Hyaline Casts 3-5 /lpf (0-2) H 10/08/18 16:38 Influenza Typ A,B (EIA) Negative for flu a/b (NEGATIVE) 10/08/18 14:46 - Hospital Course Hospital Course: Chief commend: Weakness. HPI: 82-year-old female with a history of osteoarthritis, atrial flutter fibrillation, CAD, diabetes, gallbladder disease hypertension, hy percholesterolemia, peripheral edema and with hypercalcemia came into the emergency room because of weakness. Patient had a few episodes of diarrhea prior to the day of admission. According to the family she was also feeling increasingly weakness. She was walking very poorly. Associated with increasing nausea. She was not also eating well. Because of the tiredness and fatigue patient family brought her to the emergency room. Also she was having some sweating, shortness of breath, and associated with some fever and chills. In the emergency room patient vital signs were stable. She denied any chest pain. Minimal expiratory wheezing present. Minimal cough present. No abdominal pain. But complaining of some leg pain. Past medical history: Atrial flutter fibrillation, hypertension, diabetes, hypercholesterolemia, history of bleeding in the past. Surgical history none Allergies no known drug allergy Personal history: Non-smoker nonalcoholic. Lives with family. Able to walk but increasingly severely weakness noted. Generalized weakness and malaise noted. Personal history noted Review of system: Patient has no headache. But she is somewhat confused at times. No chest pain or shortness of breath noted. Denies any nausea and vomiting. But episodes of diarrhea recently noted. On examination: Vital signs are stable otherwise. Chest good air entry Patient has a regular heart sounds Abdomen soft. And it is not tenderness noted Edema in the legs negative. Patient has a dry mucosa noted. Labs reviewed Nonspecific. Elevation of the BUN noted. Possibility of dehydration Chest x-ray nonspecific. No acute changes noted Assessment and recommendation: 82-year-old female with a history of osteoarthritis, flutter fibrillation, atrial fibrillation, CAD, diabetes and hypertension. High cholesterol. Peripheral edema. Hypercalcemia in the past. Number admitted with weakness, tiredness fatigue. Most likely dehydration related. Also evidence of urinary tract infection cannot be ruled out. Awaiting for culture. No antibiotic needed at this time. We will continue with IV fluid. Unable to follow the patient. Course in the hospital: Patient started on intravenous IV fluid. Most likely secondary to dehydration. Patient also had uncontrolled diabetes. Family was at bedside. I spoke to the patient and family in detail. Today patient was able to participate in physical exercise, able to walk. Patient is clinically stable. She will be discharged home. She will follow-up in my office. Final diagnosis: Dehydration. Uncontrolled diabetes. Weakness. Poor appetite. Anorexia. Medications reviewed. She will continue the home medications. Spoke to the family in detail counseling was given. Fall precautions advised. Discharge Plan - Follow Up Plan Condition: SERIOUS Disposition: HOME/ ROUTINE Instructions: Dehydration, Adult (DC), Diabetes Diet , Diabetic Ketoacidosis (DC) Additional Instructions: FOLLOW UP WITH DR LAYNE IN HIS OFFICE -----CALL FOR APPOINTMENT CONTINUE HOME MEDICATION ACTIVITY TOLERATED AND HOME W/SERVICE PER PHYSICAL THERAPY RECOMMENDATION CALL DR LAYNE OR GO TO THE EMERGENCY ROOM IF SYMPTOM RETURN OR WORSENING Referrals: Reagan Layne MD [Staff Provider] -
[2018-10-11] MEDS ORDERED: Influenza Vaccine 60 mcg/0.5 mL SYR (4YR UP) IM ONE (10:00)
[2018-10-11] MEDS ORDERED: Pneumococcal 23-Valent Vaccine IM ONE (14:00)
== END 2018-10-10 18:47 | disposition home or self-care (01) | DRG 638 ==
LOC: C.ER 12:46 → C.9E 16:03 → C.5S 10-09 13:54
PROVIDERS: ADMIT Internal Medicine; ATTEND Internal Medicine
DX: E11.10 Type 2 diabetes mellitus with ketoacidosis without coma (principal); I48.92 Unspecified atrial flutter; E78.00 Pure hypercholesterolemia, unspecified; E86.0 Dehydration; I10 Essential (primary) hypertension; I25.10 Atherosclerotic heart disease of native coronary artery without angina pectoris; I48.91 Unspecified atrial fibrillation; M19.90 Unspecified osteoarthritis, unspecified site; R19.7 Diarrhea, unspecified; F03.90 Unspecified dementia, unspecified severity, without behavioral disturbance, psychotic disturbance, mood disturbance, and anxiety; E83.52 Hypercalcemia; R63.0 Anorexia